=== PATIENT | female | born 1985 | race Two or more races ===

== ENCOUNTER 2025-05-24 17:14 | Emergency (ER) | payer OTHER ==
[~2025-05-24] VITALS: Ht 147.3 cm; Wt 66.7 kg
[2025-05-24] MEDS ORDERED: ONDANSETRON 4 MG TAB.RAPDIS ONE (20:38)
[2025-05-24] MEDS ORDERED: KETOROLAC TROMETHAMINE 15 MG/ML VIAL ONE (20:38)
[2025-05-24] MEDS: ONDANSETRON HCL 4 MG/5 ML SOLUTION PO ONE (20:43)
[2025-05-24] MEDS: KETOROLAC TROMETHAMINE 15 MG/ML VIAL IM ONE (20:43)
[2025-05-24 21:15] LABS: APPEARANCE,URINE CLEAR (CLEAR); BLOOD, URINE 3+ Ery/uL (NEGATIVE); LEUKOCYTE ESTERASE ,URINE TRACE (NEGATIVE); NITRITE, URINE NEGATIVE (NEGATIVE); UGLUCOSE TRACE mg/dL (NEGATIVE)
[2025-05-24 21:27] LABS: ADD URINE CULTURE YES; SQUAMOUS EPITHELIAL CELL,UR Many /HPF (None Seen)
[2025-05-24 21:38] LABS: PLATELET COUNT (AUTO) 288 K/uL (150-450); RED BLOOD CELL COUNT(AUTO) 3.82 MIL/uL (4.0-5.2); RED CELL DISTRIBUTION WIDTH 13.4 % (11.5-15.0); WHITE BLOOD COUNT (AUTO) 10.0 K/uL (4.3-11.0)
[2025-05-24 21:45] LABS: CALCIUM, SERUM 8.5 mg/dL (8.5-10.1); CREATININE 0.3 mg/dL (0.6-1.3); SODIUM SERUM 137.0 mmol/L (136-145); UREA NITROGEN, BLOOD 7.0 mg/dL (7-18)
[2025-05-24] MEDS ORDERED: CEPH-570 PO (22:40)
[2025-05-24] MEDS ORDERED: NAPR-1196 PO (22:40)
[2025-05-24] MEDS ORDERED: CEPHALEXIN MONOHYDRATE 500 MG CAPSULE PO ONE (22:44)
[2025-05-24] MEDS: CEPHALEXIN MONOHYDRATE 500 MG CAPSULE PO ONE (22:44)
[2025-05-24 22:54] VITALS: BP 106/68; TEMP 99.5; O2SAT 99
== END 2025-05-24 22:55 | disposition home or self-care (01) ==
LOC: ER 17:19
DX: N39.0 Urinary tract infection, site not specified (principal); D25.9 Leiomyoma of uterus, unspecified; R10.32 Left lower quadrant pain; R11.0 Nausea; G89.29 Other chronic pain; Z86.018 Personal history of other benign neoplasm
CPT/HCPCS: 99285; 76856; 96372; 85025; 80048; 81001; 36415; J1885; Q0162; 87086-TC